=== PATIENT | male | born 1945 | race Caucasian/White ===

== ENCOUNTER 2020-01-20 16:43 | Observation (INO) | payer OTHER, SELFPAY ==
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
[2020-01-20 16:58] LABS: Add Manual Diff / Slide Review NO; Basophils Absolute Auto 100 /uL (0-100); Basophils Percent Auto 1.4 % (0-2); Eosinophils Absolute Auto 100 /uL (0-450); Eosinophils Percent Auto 1.2 % (2-4); Hematocrit 49.3 % (41-53); Hemoglobin 16.5 g/dL (13.5-17.5); Lymphocytes Absolute Auto 2200 /uL (1100-4500); Mean Corpuscular HGB Conc 33.4 % (30-36); Mean Corpuscular Hemoglobin 32.9 PG (26-34); Mean Corpuscular Volume 98.6 fL (80-100); Monocytes Absolute Auto 500 /uL (0-900); Neutrophils Absolute Auto 3100 /uL (1500-7000); Neutrophils Percent Auto 52.4 % (50-75); Platelet Count 332 X10^3/uL (150-400); Red Cell Distribution Width 13.9 % (11.6-14.8)
[2020-01-20 17:04] VITALS: BP 157/93; PULSE 114; RESP 16; TEMP 33.3; O2SAT 98
[2020-01-20 17:07] LABS: Alanine Aminotransferase 21 IU/L (<50); Albumin 4.8 g/dL (3.5-5.0); Albumin Globulin Ratio 1.6 (1.0-2.8); Alkaline Phosphatase 91 U/L (38-126); Aspartate Aminotransferase 37 IU/L (17-59); BUN Creatinine Ratio 19.4 (6-22); Bilirubin Total 0.7 mg/dL (0.2-1.3); Blood Urea Nitrogen 24 mg/dL (9-20); Carbon Dioxide 18 mmol/L (22-32); Chloride 103 mmol/L (98-107); Creatine Kinase 121 U/L (55-170); Estimated Glomerular Filt Rate 57.3 mL/min (>60); Glucose 83 mg/dL (80-110); Lipase 106 U/L (23-300); Potassium 4.1 mmol/L (3.4-5.1); Sodium 138 mmol/L (137-145); Total Protein 7.8 g/dL (6.3-8.2)
[2020-01-20 17:08] LABS: Ethanol (ETOH) 124 mg/dL
[2020-01-20 17:10] VITALS: PULSE 77; RESP 24; O2SAT 94
[2020-01-20 17:18] LABS: Troponin I < 0.012 ng/mL (0.01-0.034)
[2020-01-20 17:23] LABS: CKMB % Relative Index 2.2 % (1.5-5.0); Creatine Kinase MB 2.64 ng/mL (<2.37); HEMOLYSIS 58 (0-50)
[2020-01-20 17:30] VITALS: BP 144/88; PULSE 79; RESP 25; O2SAT 92
[2020-01-20 18:00] VITALS: BP 125/75
[2020-01-20 18:13] VITALS: TEMP 35
[2020-01-20 18:49] VITALS: BMI 29.3
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
[2020-01-20 19:00] VITALS: BP 140/88; PULSE 79; RESP 18; TEMP 36.3; O2SAT 92
[2020-01-20 19:45] LABS: COVID19 -Nasal RAPID Negative (Negative)
[2020-01-20 21:47] VITALS: BMI 29.3
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
[2020-01-21 00:31] VITALS: BP 117/77; PULSE 79; RESP 20; TEMP 36.8; O2SAT 95
[2020-01-21] MEDS: GABAPENTIN 600 MG TABLET PO ×2 (01:01→09:02)
[2020-01-21 04:12] VITALS: BP 139/82; PULSE 67; RESP 16; TEMP 36.6; O2SAT 93
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
[2020-01-21 08:00] VITALS: BP 143/87; PULSE 60; RESP 16; TEMP 36.8; O2SAT 94
[2020-01-21 08:47] VITALS: O2SAT 95
[2020-01-21] MEDS: CELECOXIB 100 MG CAPSULE PO (09:02)
[2020-01-21] MEDS: AMLODIPINE 5 MG TABLET 10 MG PO (09:03)
[2020-01-21] MEDS: DULOXETINE 30 MG CAPSULE 60 MG PO (09:03)
--- NOTE | 2020-01-21 09:21 | PC.NURSE ---
STATISTICS MANAGER Note: Pt. needs f/u appt with PCP. Pt. stated I'll set up my own appt. notified.
--- NOTE | 2020-01-21 12:00 | PC.NURSE ---
Am shift Pt eager to d/c home this am. Orders obtained, arrived and reviewed information with her. Follow up appt. Iv removed, Pt wheeled to private vehicle.
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
== END 2020-01-21 10:30 | disposition home or self-care (01) ==
LOC: ED 18:27 → AC 18:37 → ICU 20:19
PROVIDERS: Admitting Provider Internal Medicine; Emergency Provider Emergency Medicine; Referring Provider Emergency Medicine; Visit Provider Internal Medicine
DX: T68.XXXA Hypothermia, initial encounter (principal); V90.02XA Drowning and submersion due to fishing boat overturning, initial encounter; X31.XXXA Exposure to excessive natural cold, initial encounter; I10 Essential (primary) hypertension; M19.90 Unspecified osteoarthritis, unspecified site; F10.20 Alcohol dependence, uncomplicated; N40.0 Benign prostatic hyperplasia without lower urinary tract symptoms; Z11.59 Encounter for screening for other viral diseases
CPT/HCPCS: 71045; 80053; 80320; 82550; 82553; 83690; 84484; 85025; 87635; 87797; 93005; 99284; G0378